=== PATIENT | male | born 1995 | race Two or more races ===

== ENCOUNTER 2016-07-22 14:31 | Emergency (ER) | payer OTHER ==
[~2016-07-22] VITALS: Ht 170.2 cm; Wt 95.3 kg
[2016-07-22] MEDS ORDERED: KETOROLAC 30 MG/ML VIAL (J1885) IV ONE (15:00)
[2016-07-22] MEDS ORDERED: ONDANSETRON 4MG/2ML VIAL (J2405) IV ONE (15:00)
[2016-07-22] MEDS ORDERED: NS 1,000 ML IV ONE (15:00)
[2016-07-22 15:32] LABS: BASO # 0.1 K/mm3 (0.0-0.2); BASO % 0.5 % (0.0-1.0); EOS # 0.3 K/mm3 (0.0-0.50); EOS % 2.1 % (0.0-3.0); LARGE UNSTAINED CELL # 0.3 K/mm3 (0.0-0.4); LYMPH # 5.6 K/mm3 (1.5-6.5); LYMPH % 37.9 % (24.0-44.0); MEAN CORPUSCULAR HEMOGLOBIN 28.8 pg (27.0-33.0); MEAN CORPUSCULAR HGB CONC 33.4 g/dl (32.0-36.5); MEAN CORPUSCULAR VOLUME 86.2 fl (80.0-96.0); MONO # 0.6 K/mm3 (0.0-0.8); NEUTROPHILS # 7.5 K/mm3 (1.8-7.7); NEUTROPHILS % 53.4 % (36.0-66.0); PLATELET COUNT, AUTOMATED 189 k/mm3 (150-450); RED CELL DISTRIBUTION WIDTH 13.1 % (11.5-14.5)
[2016-07-22 15:51] LABS: ALBUMIN 3.8 GM/DL (3.2-5.2); ALBUMIN/GLOBULIN RATIO 0.95 (1.00-1.93); ALKALINE PHOSPHATASE 107 U/L (45-117); ALT/SGPT 32 U/L (12-78); ANION GAP 8 MEQ/L (8-16); AST/SGOT 24 U/L (15-37); BILIRUBIN,DIRECT 0.1 MG/DL (0.0-0.2); BILIRUBIN,TOTAL 0.4 MG/DL (0.2-1.0); BLOOD UREA NITROGEN 14 MG/DL (7-18); CALCIUM LEVEL 8.9 MG/DL (8.5-10.1); CARBON DIOXIDE LEVEL 27 MEQ/L (21-32); CHLORIDE LEVEL 106 MEQ/L (98-107); CREATININE FOR GFR 1.41 MG/DL (0.70-1.30); GLOMERULAR FILTRATION RATE > 60.0 (>60); GLUCOSE, FASTING 135 MG/DL (70-105); POTASSIUM SERUM 3.4 MEQ/L (3.5-5.1); SODIUM LEVEL 141 MEQ/L (136-145); TOTAL PROTEIN 7.8 GM/DL (6.4-8.2)
[2016-07-22] MEDS ORDERED: HYDROmorphone HCL 1 MG/ML SYRINGE (J1170) IV ONE (16:30)
--- NOTE | 2016-07-22 16:35 | REP ---
Clinical: Renal colic. Findings: Mild to moderate acute left-sided obstructive uropathy with edematous enlargement of the kidney, mild perinephric stranding and hydroureteronephrosis secondary to a 7 mm calculus in the mid ureter (images 75 - 77). Multiple nonobstructing left intrarenal calculi identified up to 5 mm. The right kidney/ureter and bladder appear normal. Liver, spleen, pancreas, gallbladder, and bilateral adrenal glands are normal. The enteric system is without obstruction or acute inflammatory process. Normal terminal ileum and appendix are identified in the right lower quadrant. Pelvis demonstrates normal bladder and age appropriate prostate/seminal vesicles. No free air. No free fluid. No adenopathy. Abdominal aorta without aneurysm. Surrounding musculoskeletal structures grossly normal. Impression: Mild to moderate acute left-sided obstructive uropathy with a 7 mm calculus in the mid ureter. Multiple nonobstructing left renal calculi up to 5 mm. Signed by Eric Nieves MD 07/22/2016 04:27 P
[2016-07-22] MEDS ORDERED: KETO10TAB PO (16:42)
[2016-07-22] MEDS ORDERED: ZOFR4TAB3 PO (16:42)
[2016-07-22] MEDS ORDERED: HYDR-3713 PO (16:42)
[2016-07-22] MEDS ORDERED: FLOM5CAP PO (16:42)
[2016-07-22 17:13] VITALS: BP 145/74
== END 2016-07-22 17:32 | disposition home or self-care (01) ==
LOC: M ED 15:33
DX: N20.1 Calculus of ureter (principal); Z87.442 Personal history of urinary calculi
CPT/HCPCS: 74176; 80048; 80076; 83690; 85025; 96374; 96375; 99283; J1885; J2405

== ENCOUNTER 2016-07-25 16:26 | Emergency (ER) | payer OTHER ==
[~2016-07-25] VITALS: Ht 177.8 cm; Wt 95.3 kg
[2016-07-25 16:26] VITALS: BP 155/76
[~2016-07-25 16:26] MED LIST: FLOM5CAP PO; HYDR-3713 PO; KETO10TAB PO; ZOFR4TAB3 PO
[2016-07-25 17:31] LABS: BASO % 0.3 % (0.0-1.0); EOS # 0.3 K/mm3 (0.0-0.50); EOS % 2.6 % (0.0-3.0); LARGE UNSTAINED CELL # 0.2 K/mm3 (0.0-0.4); LYMPH # 2.5 K/mm3 (1.5-6.5); LYMPH % 22.4 % (24.0-44.0); MEAN CORPUSCULAR HEMOGLOBIN 29.4 pg (27.0-33.0); MEAN CORPUSCULAR HGB CONC 33.7 g/dl (32.0-36.5); MEAN CORPUSCULAR VOLUME 87.3 fl (80.0-96.0); MONO # 0.7 K/mm3 (0.0-0.8); MONO % 6.5 % (0.0-5.0); NEUTROPHILS # 6.9 K/mm3 (1.8-7.7); NEUTROPHILS % 66.2 % (36.0-66.0); PLATELET COUNT, AUTOMATED 133 k/mm3 (150-450); RED CELL DISTRIBUTION WIDTH 12.9 % (11.5-14.5); WHITE BLOOD COUNT 10.4 K/mm3 (4.0-10.0)
[2016-07-25 17:42] LABS: ANION GAP 4 MEQ/L (8-16); BLOOD UREA NITROGEN 12 MG/DL (7-18); CALCIUM LEVEL 8.5 MG/DL (8.5-10.1); CARBON DIOXIDE LEVEL 32 MEQ/L (21-32); CHLORIDE LEVEL 102 MEQ/L (98-107); CREATININE FOR GFR 1.52 MG/DL (0.70-1.30); GLOMERULAR FILTRATION RATE > 60.0 (>60); GLUCOSE, FASTING 96 MG/DL (70-105); POTASSIUM SERUM 3.8 MEQ/L (3.5-5.1); SODIUM LEVEL 138 MEQ/L (136-145)
[2016-07-25] MEDS ORDERED: ACET30TAB PO (18:04)
== END 2016-07-25 18:20 | disposition home or self-care (01) ==
LOC: M ED 17:04
DX: N23 Unspecified renal colic (principal); Z79.899 Other long term (current) drug therapy

== ENCOUNTER 2016-08-01 03:33 | Emergency (ER) | payer OTHER ==
[~2016-08-01] VITALS: Ht 170.2 cm; Wt 95.3 kg
[~2016-08-01 03:33] MED LIST changes: +ACET30TAB PO
[2016-08-01 05:10] VITALS: BP 130/93
[2016-08-11 00:06] LABS: Size 7x5x4 mm (.)
[2016-08-13] MEDS ORDERED: FLOM5CAP PO (06:36)
== END 2016-08-01 05:30 | disposition home or self-care (01) ==
LOC: M ED 05:22
DX: N20.1 Calculus of ureter (principal); Z79.899 Other long term (current) drug therapy

== ENCOUNTER → 2016-08-13 | Day surgery (SDC) | payer OTHER ==
[~2016-08-13] VITALS: Ht 177.8 cm; Wt 95.3 kg
[~2016-08-13] MED LIST changes: +CONRAY-60 60% 50ML VIAL (Q9961) As Ordered ONE; +KETOROLAC 30 MG/ML VIAL (J1885) IV PRN; +LIDOCAINE 1% SDV 5 ML VIAL SC ONE; +LR 1,000 ML IV SCH; +MEPERIDINE INJ 25 MG/ML VIAL (J2175) IV PRN; +METOCLOPRAMIDE INJ 10MG/2ML VIAL (J2765) IV PRN; +MIDAZOLAM INJ 2 MG/2 ML VIAL (J2250) As Ordered ONE; +ONDANSETRON 4MG/2ML VIAL (J2405) As Ordered ONE; +ONDANSETRON 4MG/2ML VIAL (J2405) IV PRN; +PERCOCET 5MG/325MG TAB PO PRN; +PROPOFOL 200 MG/20 ML VIAL As Ordered ONE; +ROCURONIUM BROMIDE 50 MG/5 ML VIAL As Ordered ONE; +SUCCINYLCHOLINE 100 MG/5 ML SYRINGE (J0330) As Ordered ONE; +dexameTHASONE 4 MG/ML 1ML VIAL (J1100) As Ordered ONE; +fentaNYL 100 MCG/2 ML INJECTION (J3010) As Ordered ONE; +fentaNYL 100 MCG/2 ML INJECTION (J3010) IV PRN; +oxyBUTYnin 5 MG TAB PO PRN
--- NOTE | 2016-08-13 08:40 | REP ---
RETROGRADE PYELOGRAM: Three views. HISTORY: Ureteral stone. 6 seconds of fluoroscopy time is reported. FINDINGS: A sequence of three last image hold fluoro spot radiographs of the left abdomen document left ureteral cannulation, guidewire manipulation, contrast injection, and double pigtail ureteral stent placement. Signed by Micheal Mcgrath MD 08/13/2016 09:36 A
--- NOTE | 2016-08-13 09:12 | RO ---
DATE OF PROCEDURE: 08/13/2016 PREPROCEDURE DIAGNOSIS: Left kidney and ureteral stones. POSTPROCEDURE DIAGNOSES: Left kidney stone, left renal pelvic mass. PROCEDURE: Cystoscopy, left ureteroscopy with basket extraction of stones and biopsy of renal pelvis mass, left retrograde pyelogram with intraoperative interpretation of images, right ureteral stent placement. SURGEON: Dr. Thomas Chavis HAIR SPRING WINDER: None. ANESTHESIA: General. OPERATIVE INDICATIONS: This is a 21-year-old male who was recently found to have an obstructing 6-7 mm proximal left ureteral stone as well as a few stones inside the left kidney. He was brought to the operating room today for treatment of those stones. DESCRIPTION OF PROCEDURE: The patient was brought to the operating room where general anesthesia was induced. Prophylactic antibiotics were infused. He was placed in dorsal lithotomy position, prepped and draped in the usual sterile fashion. A rigid cystoscope was then inserted into the urethral meatus and advanced into the bladder. Once within the bladder, a wire was advanced up the left collecting system. A ureteral access sheath was then advanced over the wire into the left collecting system and the wire was secured to the drape to serve as a safety wire. I then went up the access sheath into the proximal left ureter. Of note, there did appear to be some edema in the proximal ureter particularly where the stone was previously but no stone was seen. I advanced the scope all the way into the kidney and the kidney was thoroughly examined. Only one small stone was seen, that was about 3 mm in size. The stone was grasped with a basket and removed. Also of note, there were probably about three or four areas in the renal pelvis that had whitish-brown fibrotic appearing tissue in it. It was possible that this was scar tissue from prior stone surgery. It did appear abnormal. I also suspect that this tissue might be what was showing up as possible stones on the preoperative CT scan. I took several biopsies of this tissue to be sent for pathologic analysis. At this point, I examined the kidney thoroughly once again and no additional stones were seen. A retrograde pyelogram was then performed and was notable for moderate to severe left hydronephrosis. I then withdrew the ureteroscope along with the ureteral access sheath and examined the remainder of the ureter and no stones were seen within the entire ureter. At this point, the wire was utilized to advance a 7-Dutch by #22-32 cm JJ ureteral stent up into the left collecting system. The wire was then removed and there were adequate curls to the stent in the left renal pelvis and in the bladder. The bladder was then emptied of all fluid and this marked the conclusion of the procedure. The patient was then taken out of dorsal lithotomy position, awakened from anesthesia and transported to the recovery room in stable condition. ESTIMATED BLOOD LOSS: 0 mL. COMPLICATIONS: None. SPECIMENS: Left kidney stone, biopsy of left renal pelvic mass. COMPLICATIONS: None. PLAN: The patient will followup in the clinic in a few weeks for stent removal. We will also discuss pathology results at that time. YONY
[2016-08-13 09:45] VITALS: BP 135/85
== END | disposition home or self-care (01) ==
LOC: M SDC 05:37
PROVIDERS: ATTEND Urology
DX: N20.0 Calculus of kidney (principal); D41.12 Neoplasm of uncertain behavior of left renal pelvis; F17.210 Nicotine dependence, cigarettes, uncomplicated; R06.83 Snoring
CPT/HCPCS: 52332; 52352; 74420; 82360; 88300; 88305; C1726; C1894; C2617; J0330; J0690; J1100; J2250; J2405; J3010; Q9961

== ENCOUNTER 2016-08-28 21:02 | Emergency (ER) | payer OTHER ==
[~2016-08-28] VITALS: Ht 177.8 cm; Wt 96.6 kg
[~2016-08-28 21:02] MED LIST changes: -CONRAY-60 60% 50ML VIAL (Q9961) As Ordered ONE; -KETOROLAC 30 MG/ML VIAL (J1885) IV PRN; -LIDOCAINE 1% SDV 5 ML VIAL SC ONE; -LR 1,000 ML IV SCH; -MEPERIDINE INJ 25 MG/ML VIAL (J2175) IV PRN; -METOCLOPRAMIDE INJ 10MG/2ML VIAL (J2765) IV PRN; -MIDAZOLAM INJ 2 MG/2 ML VIAL (J2250) As Ordered ONE; -ONDANSETRON 4MG/2ML VIAL (J2405) As Ordered ONE; -ONDANSETRON 4MG/2ML VIAL (J2405) IV PRN; -PERCOCET 5MG/325MG TAB PO PRN; -PROPOFOL 200 MG/20 ML VIAL As Ordered ONE; -ROCURONIUM BROMIDE 50 MG/5 ML VIAL As Ordered ONE; -SUCCINYLCHOLINE 100 MG/5 ML SYRINGE (J0330) As Ordered ONE; -dexameTHASONE 4 MG/ML 1ML VIAL (J1100) As Ordered ONE; -fentaNYL 100 MCG/2 ML INJECTION (J3010) As Ordered ONE; -fentaNYL 100 MCG/2 ML INJECTION (J3010) IV PRN; -oxyBUTYnin 5 MG TAB PO PRN
[2016-08-28] MEDS ORDERED: IBUP-1114 PO (21:13)
[2016-08-28] MEDS ORDERED: OXYB5TAB10 PO (21:14)
[2016-08-29 00:34] LABS: BASO % 0.5 % (0.0-1.0); EOS # 0.3 K/mm3 (0.0-0.50); EOS % 2.4 % (0.0-3.0); LARGE UNSTAINED CELL # 0.2 K/mm3 (0.0-0.4); LARGE UNSTAINED CELL % 1.6 % (0.0-4.0); LYMPH # 3.7 K/mm3 (1.5-6.5); LYMPH % 31.5 % (24.0-44.0); MEAN CORPUSCULAR HEMOGLOBIN 28.7 pg (27.0-33.0); MEAN CORPUSCULAR VOLUME 87.2 fl (80.0-96.0); MONO # 0.6 K/mm3 (0.0-0.8); MONO % 5.2 % (0.0-5.0); NEUTROPHILS # 6.6 K/mm3 (1.8-7.7); NEUTROPHILS % 58.8 % (36.0-66.0); PLATELET COUNT, AUTOMATED 175 k/mm3 (150-450); RED CELL DISTRIBUTION WIDTH 13.6 % (11.5-14.5); WHITE BLOOD COUNT 11.2 K/mm3 (4.0-10.0)
[2016-08-29 00:39] LABS: ANION GAP 5 MEQ/L (8-16); BLOOD UREA NITROGEN 18 MG/DL (7-18); CARBON DIOXIDE LEVEL 29 MEQ/L (21-32); CHLORIDE LEVEL 111 MEQ/L (98-107); CREATININE FOR GFR 1.32 MG/DL (0.70-1.30); GLOMERULAR FILTRATION RATE > 60.0 (>60); GLUCOSE, FASTING 94 MG/DL (70-105); POTASSIUM SERUM 3.9 MEQ/L (3.5-5.1); SODIUM LEVEL 145 MEQ/L (136-145)
--- NOTE | 2016-08-29 01:00 | REPUSA ---
CLINICAL HISTORY: Abdominal pain. TECHNIQUE: Multiple axial, sagittal and coronal CT images were obtained through the abdomen and pelvi s without administration of oral or IV contrast material. COMMENTS: Comparison is made to the prior exam performed on 07/15/2015. 3.2 mm residual stone is noted in the left ureter at the L3 level. Mild decrease in left hydrouretero nephrosis which remains however moderate. Left Double-J catheteri s in good position. No change in bilateral nephrocalcinosis and nephrolithiasis. The liver is of uniform attenuation without mass or defect. There is no intra or extrahepatic biliary ductal dilatation. The spleen is normal. The gallbladder is within normal limits. The pancreas is of normal contour and attenuation characteristics. There is no evidence of adrenal mass. There is no evidence for appendicitis. There is no bowel wall thickening. No evidence for small or la rge bowel obstruction. There is no evidence of abdominal ascites or lymphadenopathy. There is no evidence of intrinsic or extrinsic bladder mass. There is no pelvic ascites or lymphadeno johnny. Images of the lung bases show no evidence of pleural or parenchymal mass. There are no pleural effusi ons. The bony structures are free of lytic or blastic lesions. Multilevel degenerative changes are seen in volving the thoracolumbar spine. IMPRESSION: 3.2 mm residual stone is noted in the left ureter at L3. Mild decrease in left hydroureteronephrosis which remains however moderate. Left double-J catheter was inserted in good position. Moderate large bowel fecal stasis. Thank you for your kind referral of this patient.
[2016-08-29 01:51] LABS: CALCIUM OXALATE CRYSTALS SMALL
[2016-08-29] MEDS ORDERED: PYRI1TAB5 PO (02:49)
[2016-08-29] MEDS ORDERED: PHENAZOPYRIDINE 100 MG TAB PO ONE (03:00)
[2016-08-29 03:04] VITALS: BP 123/69
== END 2016-08-29 03:54 | disposition home or self-care (01) ==
LOC: M ED 23:34
DX: N20.1 Calculus of ureter (principal); N13.30 Unspecified hydronephrosis; K56.41 Fecal impaction; Z97.8 Presence of other specified devices; Z79.899 Other long term (current) drug therapy

== ENCOUNTER 2016-09-17 21:10 | Emergency (ER) | payer OTHER ==
[~2016-09-17] VITALS: Ht 170.2 cm; Wt 66.6 kg
[~2016-09-17 21:10] MED LIST changes: +IBUP-1114 PO; +OXYB5TAB10 PO; +PYRI1TAB5 PO
[2016-09-17] MEDS ORDERED: MORPHINE 4 MG/ML 1ML SYRINGE IV ONE (22:45)
[2016-09-17] MEDS ORDERED: ONDANSETRON 4MG/2ML VIAL (J2405) IV ONE (22:45)
--- NOTE | 2016-09-17 23:30 | REPUSA ---
CT of the abdomen and pelvis without contrast Clinical statement: Pain. Technique: Multiple axial CT images were obtained from the base of the lungs to the floor of the pelv is utilizing 5 mm axial slices without administration of contrast. Coronal and sagittal reconstructio ns were also obtained. Comparison: 08/29/2016. Findings: Chest: The visualized lung bases are clear. Abdomen: The kidneys are normal in size bilaterally. There is extensive bilateral nephrolithiasis. Th e moderately severe left-sided hydronephrosis and hydroureter remains. Inflammation around the left k idney has increased. The kidney stone in the distal left ureter is not located at the left ureteroves ical junction. The liver, spleen, pancreas, gallbladder and adrenal glands are unremarkable. The aort a demonstrates normal caliber and contour. There is no abdominal lymphadenopathy or ascites. Pelvis: The bowel is unremarkable, with no obstructive or inflammatory changes. The urinary bladder i s within normal limits. There is no pelvic lymphadenopathy or ascites. The other pelvic structures ap pear unremarkable. Bones: There are no suspicious osseous abnormalities seen. Impression: 1. Slow progression of the 4 mm obstructing stone in the distal left ureter, now located at the left ureterovesical junction. 2. Moderately severe left-sided hydronephrosis and hydroureter remains. Perinephric inflammation arou nd the left kidney has increased since the prior study however. 3. Extensive bilateral nephrolithiasis. 4. The other CT findings are stable.
[2016-09-17 23:37] LABS: BASO # 0.1 K/mm3 (0.0-0.2); BASO % 0.5 % (0.0-1.0); EOS # 0.3 K/mm3 (0.0-0.50); EOS % 1.9 % (0.0-3.0); LARGE UNSTAINED CELL # 0.2 K/mm3 (0.0-0.4); LARGE UNSTAINED CELL % 1.2 % (0.0-4.0); LYMPH # 3.2 K/mm3 (1.5-6.5); LYMPH % 20.4 % (24.0-44.0); MEAN CORPUSCULAR HEMOGLOBIN 28.2 pg (27.0-33.0); MEAN CORPUSCULAR HGB CONC 32.2 g/dl (32.0-36.5); MEAN CORPUSCULAR VOLUME 87.5 fl (80.0-96.0); MONO # 0.8 K/mm3 (0.0-0.8); MONO % 5.1 % (0.0-5.0); NEUTROPHILS # 10.4 K/mm3 (1.8-7.7); PLATELET COUNT, AUTOMATED 171 k/mm3 (150-450); RED CELL DISTRIBUTION WIDTH 13.6 % (11.5-14.5); WHITE BLOOD COUNT 14.7 K/mm3 (4.0-10.0)
[2016-09-17 23:58] LABS: ANION GAP 4 MEQ/L (8-16); BLOOD UREA NITROGEN 14 MG/DL (7-18); CARBON DIOXIDE LEVEL 29 MEQ/L (21-32); CHLORIDE LEVEL 111 MEQ/L (98-107); CREATININE FOR GFR 1.51 MG/DL (0.70-1.30); GLOMERULAR FILTRATION RATE > 60.0 (>60); GLUCOSE, FASTING 116 MG/DL (70-105); POTASSIUM SERUM 3.4 MEQ/L (3.5-5.1); SODIUM LEVEL 144 MEQ/L (136-145)
[2016-09-18] MEDS ORDERED: FLOM5CAP PO (00:19)
[2016-09-18] MEDS ORDERED: ZOFR4TAB3 PO (00:19)
[2016-09-18] MEDS ORDERED: NORCOTAB PO (00:19)
[2016-09-18] MEDS ORDERED: NORCO 5/325MG TABLET (BULK FOR ED) PO ONE (00:30)
[2016-09-18] MEDS ORDERED: TAMSULOSIN 0.4 MG CAP PO ONE (00:30)
[2016-09-18 00:33] VITALS: BP 135/85
== END 2016-09-18 00:34 | disposition home or self-care (01) ==
LOC: M ED 21:10
DX: N20.1 Calculus of ureter (principal); N13.30 Unspecified hydronephrosis; R11.0 Nausea; Z87.442 Personal history of urinary calculi; F17.200 Nicotine dependence, unspecified, uncomplicated
CPT/HCPCS: 74176; 80048; 81001; 85025; 86140; 87086; 96374; 96375; 99284; J2405

== ENCOUNTER 2016-10-09 19:08 | Emergency (ER) | payer OTHER ==
[~2016-10-09] VITALS: Ht 170.2 cm; Wt 97.7 kg
[~2016-10-09 19:08] MED LIST changes: +NORCOTAB PO
[2016-10-09 19:59] LABS: BASO # 0.1 K/mm3 (0.0-0.2); BASO % 0.7 % (0.0-1.0); EOS # 0.3 K/mm3 (0.0-0.50); LARGE UNSTAINED CELL # 0.3 K/mm3 (0.0-0.4); LARGE UNSTAINED CELL % 2.6 % (0.0-4.0); LYMPH # 5.5 K/mm3 (1.5-6.5); LYMPH % 42.7 % (24.0-44.0); MEAN CORPUSCULAR HEMOGLOBIN 29.2 pg (27.0-33.0); MEAN CORPUSCULAR HGB CONC 33.4 g/dl (32.0-36.5); MEAN CORPUSCULAR VOLUME 87.5 fl (80.0-96.0); MONO # 0.6 K/mm3 (0.0-0.8); NEUTROPHILS % 46.9 % (36.0-66.0); PLATELET COUNT, AUTOMATED 193 k/mm3 (150-450); RED CELL DISTRIBUTION WIDTH 13.4 % (11.5-14.5); WHITE BLOOD COUNT 12.8 K/mm3 (4.0-10.0)
[2016-10-09] MEDS ORDERED: MORPHINE 4 MG/ML 1ML SYRINGE IV ONE (20:00)
[2016-10-09] MEDS ORDERED: NS 1,000 ML IV ONE (20:00)
[2016-10-09] MEDS ORDERED: ONDANSETRON 4MG/2ML VIAL (J2405) IV ONE (20:00)
[2016-10-09 20:20] LABS: ALBUMIN 4.2 GM/DL (3.2-5.2); ALBUMIN/GLOBULIN RATIO 1.24 (1.00-1.93); ALKALINE PHOSPHATASE 94 U/L (45-117); ALT/SGPT 42 U/L (12-78); ANION GAP 11 MEQ/L (8-16); AST/SGOT 45 U/L (15-37); BILIRUBIN,DIRECT < 0.1 MG/DL (0.0-0.2); BILIRUBIN,TOTAL 0.2 MG/DL (0.2-1.0); BLOOD UREA NITROGEN 12 MG/DL (7-18); CALCIUM LEVEL 9.7 MG/DL (8.5-10.1); CARBON DIOXIDE LEVEL 26 MEQ/L (21-32); CHLORIDE LEVEL 108 MEQ/L (98-107); CREATININE FOR GFR 1.28 MG/DL (0.70-1.30); GLOMERULAR FILTRATION RATE > 60.0 (>60); GLUCOSE, FASTING 121 MG/DL (70-105); POTASSIUM SERUM 3.3 MEQ/L (3.5-5.1); SODIUM LEVEL 145 MEQ/L (136-145); TOTAL PROTEIN 7.6 GM/DL (6.4-8.2)
--- NOTE | 2016-10-09 20:30 | REPUSA ---
CT of the abdomen and pelvis without contrast Clinical statement: Pain. Left renal stone. Technique: Multiple axial CT images were obtained from the base of the lungs to the floor of the pelv is utilizing 5 mm axial slices without administration of contrast. Coronal and sagittal reconstructio ns were also obtained. Comparison: 09/17/2016. Findings: Chest: The visualized lung bases are clear. Abdomen: The kidneys are normal in size bilaterally. The extensive bilateral nephrolithiasis remained . However, there are numerous new small stones in the left renal pelvis which would the prior study, with worsening left-sided hydronephrosis. There appears to be a new obstructing 4 mm stone in the mid -left ureter. The previously described obstructing stone in the distal left ureter appears to have re solved. Left perinephric inflammation has increased since the prior study. The liver, spleen, pancrea s, gallbladder and adrenal glands are unremarkable. The aorta demonstrates normal caliber and contour . There is no abdominal lymphadenopathy or ascites. Pelvis: The bowel is unremarkable, with no obstructive or inflammatory changes. The appendix is raghav l. The urinary bladder is within normal limits. There is no pelvic lymphadenopathy or ascites. The ot her pelvic structures appear unremarkable. Bones: There are no suspicious osseous abnormalities seen. Impression: 1. New worsening left-sided hydronephrosis and perinephric inflammation, caused by a new 4 mm obstruc ting stone in the mid-left ureter. 2. Numerous new stones are seen in the left renal pelvis. 3. The previously described stone in the distal left ureter is no longer visualized, and likely has p assed. 4. Otherwise, extensive bilateral nephrolithiasis is stable. 5. The other CT findings are unchanged.
[2016-10-09] MEDS ORDERED: KETOROLAC 30 MG/ML VIAL (J1885) IV ONE (20:45)
[2016-10-09] MEDS ORDERED: POTASSIUM CHLORIDE 10 MEQ SR TABLET PO ONE (20:45)
[2016-10-09] MEDS ORDERED: CIPR-249 PO (22:11)
[2016-10-09] MEDS ORDERED: ZOFR4TAB3 PO (22:12)
[2016-10-09] MEDS ORDERED: FLOM5CAP PO (22:13)
[2016-10-09] MEDS ORDERED: PERC5TAB12 PO (22:13)
[2016-10-09] MEDS ORDERED: OXYCODONE/APAP 5MG/325MG(BULK FOR ED) 1 TABLET PO ONE (22:15)
[2016-10-09] MEDS ORDERED: CIPROFLOXACIN 500 MG TAB PO ONE (22:15)
[2016-10-09 22:30] VITALS: BP 137/87
== END 2016-10-09 22:32 | disposition home or self-care (01) ==
LOC: M ED 19:08
DX: N13.2 Hydronephrosis with renal and ureteral calculous obstruction (principal); Z87.442 Personal history of urinary calculi; Z96.0 Presence of urogenital implants
CPT/HCPCS: 74176; 80048; 80076; 81001; 83690; 85025; 87040; 87086; 96361; 96374; 96375; 99283; J1885; J2405

== ENCOUNTER 2016-10-27 01:52 | Emergency (ER) | payer OTHER, SELFPAY ==
[~2016-10-27] VITALS: Ht 170.2 cm; Wt 95.5 kg
[~2016-10-27 01:52] MED LIST changes: +CIPR-249 PO; +PERC5TAB12 PO
[2016-10-27] MEDS ORDERED: NS 1,000 ML IV ONE (02:30)
[2016-10-27] MEDS ORDERED: MORPHINE 4 MG/ML 1ML SYRINGE IV PRN (02:30)
[2016-10-27] MEDS ORDERED: KETOROLAC 30 MG/ML VIAL (J1885) IV ONE (02:30)
[2016-10-27] MEDS ORDERED: ONDANSETRON 4MG/2ML VIAL (J2405) IV ONE (02:30)
[2016-10-27 02:32] LABS: BASO % 0.3 % (0.0-1.0); EOS # 0.1 K/mm3 (0.0-0.50); EOS % 0.8 % (0.0-3.0); LARGE UNSTAINED CELL # 0.3 K/mm3 (0.0-0.4); LARGE UNSTAINED CELL % 1.9 % (0.0-4.0); LYMPH # 3.4 K/mm3 (1.5-6.5); LYMPH % 24.5 % (24.0-44.0); MEAN CORPUSCULAR HEMOGLOBIN 29.6 pg (27.0-33.0); MEAN CORPUSCULAR HGB CONC 34.3 g/dl (32.0-36.5); MEAN CORPUSCULAR VOLUME 86.2 fl (80.0-96.0); MONO # 0.8 K/mm3 (0.0-0.8); MONO % 5.5 % (0.0-5.0); NEUTROPHILS # 9.4 K/mm3 (1.8-7.7); PLATELET COUNT, AUTOMATED 198 k/mm3 (150-450); RED CELL DISTRIBUTION WIDTH 13.3 % (11.5-14.5)
[2016-10-27 02:39] LABS: ALBUMIN 4.1 GM/DL (3.2-5.2); ALBUMIN/GLOBULIN RATIO 1.08 (1.00-1.93); ALKALINE PHOSPHATASE 84 U/L (45-117); ALT/SGPT 52 U/L (12-78); ANION GAP 13 MEQ/L (8-16); AST/SGOT 65 U/L (15-37); BILIRUBIN,DIRECT 0.1 MG/DL (0.0-0.2); BILIRUBIN,TOTAL 0.5 MG/DL (0.2-1.0); BLOOD UREA NITROGEN 11 MG/DL (7-18); CALCIUM LEVEL 9.4 MG/DL (8.5-10.1); CARBON DIOXIDE LEVEL 22 MEQ/L (21-32); CHLORIDE LEVEL 109 MEQ/L (98-107); CREATININE FOR GFR 1.52 MG/DL (0.70-1.30); GLOMERULAR FILTRATION RATE > 60.0 (>60); GLUCOSE, FASTING 129 MG/DL (70-105); POTASSIUM SERUM 3.3 MEQ/L (3.5-5.1); SODIUM LEVEL 144 MEQ/L (136-145); TOTAL PROTEIN 7.9 GM/DL (6.4-8.2)
--- NOTE | 2016-10-27 03:40 | REPUSA ---
CLINICAL HISTORY: Left flank pain. TECHNIQUE: Multiple axial, sagittal and coronal CT images were obtained through the abdomen and pelvi s without administration of oral or IV contrast material. COMMENTS: Comparison to the prior exam performed on 10/09/2016. Unchanged bilateral nephrolithiasis. Mild increase in left hydronephrosis. The previously noted stone in the proximal left ureter is not seen on the current exam. Another large r stone is identified in the proximal third of the left ureter at the same photography measuring 7.1x 6.1 mm. Increased nephrographic fat stranding and minimal free fluid. The liver is of uniform attenuation without mass or defect. There is no intra or extrahepatic biliary ductal dilatation. The spleen is normal. The gallbladder is within normal limits. The pancreas is of normal contour and attenuation characteristics. There is no evidence of adrenal mass. There is no evidence for appendicitis. There is no bowel wall thickening. No evidence for small or la rge bowel obstruction. There is no evidence of abdominal ascites or lymphadenopathy. There is no evidence of intrinsic or extrinsic bladder mass. There is no pelvic ascites or lymphadeno johnny. Images of the lung bases show no evidence of pleural or parenchymal mass. There are no pleural effusi ons. The bony structures are free of lytic or blastic lesions. IMPRESSION: Unchanged bilateral nephrolithiasis. Mild increase in left hydronephrosis. The previously noted stone in the proximal left ureter is not seen on the current exam. Instead a larger stone is noted in the proximal third of the left ureter at the same photography. Thank you for your kind referral of this patient.
[2016-10-27] MEDS ORDERED: METOCLOPRAMIDE INJ 10MG/2ML VIAL (J2765) IV ONE (04:15)
[2016-10-27] MEDS ORDERED: FLOM5CAP PO (05:21)
[2016-10-27] MEDS ORDERED: PERC5TAB12 PO (05:21)
[2016-10-27] MEDS ORDERED: ZOFR4TAB3 PO (05:21)
[2016-10-27] MEDS ORDERED: CIPR-249 PO (05:21)
[2016-10-27] MEDS ORDERED: CIPROFLOXACIN 500 MG TAB PO ONE (05:30)
[2016-10-27] MEDS ORDERED: TAMSULOSIN 0.4 MG CAP PO ONE (05:30)
[2016-10-27] MEDS ORDERED: OXYCODONE/APAP 5MG/325MG(BULK FOR ED) 1 TABLET PO ONE (05:30)
[2016-10-27 05:39] VITALS: BP 168/82
== END 2016-10-27 05:40 | disposition home or self-care (01) ==
LOC: EDBD 01:52 → M ED 01:52
DX: N20.1 Calculus of ureter (principal); Z87.442 Personal history of urinary calculi; F17.210 Nicotine dependence, cigarettes, uncomplicated
CPT/HCPCS: 74176; 80048; 80076; 81001; 83690; 85025; 87086; 96361; 96374; 96375; 99284; J1885; J2405; J2765

== ENCOUNTER 2017-02-08 09:36 | Day surgery (SDC) | payer SELFPAY ==
[~2017-02-08] VITALS: Ht 172.7 cm; Wt 95.5 kg
[2017-02-08] MEDS ORDERED: KETOROLAC 60 MG/2 ML VIAL (J1885) IM ONE (10:15)
[2017-02-08] MEDS ORDERED: ONDANSETRON 4MG/2ML VIAL (J2405) IV ONE ×2 (10:15→12:00)
[2017-02-08] MEDS ORDERED: KETOROLAC 30 MG/ML VIAL (J1885) As Ordered ONE (10:27)
[2017-02-08] MEDS ORDERED: KETOROLAC 30 MG/ML VIAL (J1885) IV ONE (10:30)
--- NOTE | 2017-02-08 11:17 | REP ---
CT ABDOMEN PELVIS WITHOUT CONTRAST: 02/08/2017 COMPARISON: 10/27/2016, 10/09/2016. CLINICAL HISTORY: Left flank pain. History of stones. Renal stone protocol was utilized. CT ABDOMEN: Lung bases are clear. Heart is not enlarged. There is no pericardial thickening or effusion. The liver, spleen, gallbladder, pancreas and adrenal glands are normal. Right kidney shows a punctate calcification in the pyramid about 2 mm in the interpolar region. The left kidney shows a moderately severe hydronephrosis with multiple calculi in the interpolar upper pole junction and lower pole. There are three stones in an extrarenal pelvis. The largest of which has a 14 mm in transverse diameter while another one has a vertical diameter of 20 mm. These are unchanged. In the extrarenal pelvis and hydroureter proximally, there is an 8.5 mm x 13 mm stone in the left UPJ and this is unchanged as is the degree of hydronephrosis. Below, this ureter has a normal course. There is perinephric and periureteral infiltration/edema similar to previous study. Remainder of the course of the left ureter is unremarkable and unchanged. Small bowel loops and colon are unchanged. CT bone windows, acute findings in the lumbar and lower thoracic spine and visualized ribs. CT PELVIS: The bony hips, pelvis, sacrum and acetabuli are unremarkable with the bladder nearly empty without stone, mass or wall thickening. Distal ureters without dilatation or stone. Calcification in the prostate. No ventral or inguinal hernia. Distal left colon, sigmoid and rectum unremarkable. Small bowel loops intact. IMPRESSION: 1. Multiple large left renal stones in the extrarenal pelvis, the three stones are unchanged in location from the previous study in October and measuring 20 mm vertical for the largest and the second largest about 14 mm . 2. Proximal left ureteral stone or UPJ stone also noted, 13 x 8 mm. Both of these areas are grossly unchanged and the degree of moderately severe to severe hydronephrosis is unchanged with perinephric and periureteral infiltration. 3. A few scattered other calcifications in the left kidney and a punctate nonobstructing stone on the right. No other finding. Signed by Nilo Suarez MD 02/08/2017 08:28 P
[2017-02-08] MEDS ORDERED: MORPHINE 4 MG/ML 1ML SYRINGE IV ONE (12:00)
[2017-02-08 12:03] LABS: BASO % 0.2 % (0.0-1.0); IMMATURE GRANULOCYTE % 0.3 % (0-0); LYMPH # 0.9 10^3/uL (1.5-6.5); LYMPH % 6.2 % (24.0-44.0); MEAN CORPUSCULAR HEMOGLOBIN 28.6 pg (27.0-33.0); MEAN CORPUSCULAR HGB CONC 33.4 g/dl (32.0-36.5); MEAN CORPUSCULAR VOLUME 85.5 fl (80.0-96.0); MONO # 0.6 10^3/uL (0.0-0.8); MONO % 3.9 % (0.0-5.0); NEUTROPHILS # 12.9 10^3/uL (1.8-7.7); NEUTROPHILS % 89.4 % (36.0-66.0); PLATELET COUNT, AUTOMATED 199 10^3/uL (150-450); RED CELL DISTRIBUTION WIDTH 13.8 % (11.5-14.5); WHITE BLOOD COUNT 14.4 10^3/uL (4.0-10.0)
[2017-02-08 12:32] LABS: ALBUMIN 4.3 GM/DL (3.2-5.2); ALBUMIN/GLOBULIN RATIO 1.13 (1.00-1.93); BILIRUBIN,TOTAL 0.6 MG/DL (0.2-1.0); CALCIUM LEVEL 9.5 MG/DL (8.5-10.1); CREATININE FOR GFR 1.7 MG/DL (0.70-1.30); GLOMERULAR FILTRATION RATE 53.4 (>60); POTASSIUM SERUM 3.8 MEQ/L (3.5-5.1); TOTAL PROTEIN 8.1 GM/DL (6.4-8.2)
[2017-02-08] MEDS ORDERED: CONRAY-60 60% 50ML VIAL (Q9961) As Ordered ONE (16:08)
[2017-02-08] MEDS ORDERED: MIDAZOLAM INJ 2 MG/2 ML VIAL (J2250) As Ordered ONE (16:22)
[2017-02-08] MEDS ORDERED: LIDOCAINE 2% INJ 100 MG/5 ML SDV (FOR ANES.) As Ordered ONE (16:23)
[2017-02-08] MEDS ORDERED: fentaNYL 100 MCG/2 ML INJECTION (J3010) As Ordered ONE (16:23)
[2017-02-08] MEDS ORDERED: PROPOFOL 200 MG/20 ML VIAL As Ordered ONE (16:23)
[2017-02-08] MEDS ORDERED: ceFAZolin 2 GM/D5W 50 ML IV BAG (J0690 PER 500MG) As Ordered ONE (16:44)
--- NOTE | 2017-02-08 16:51 | SMCUROLCON ---
Urology Consultation General Date of Consultation 02/08/17 Reason For Consultation This patient is seen for Kidney Stones. History of Present Illness This is a 21 y/o M w/ a PMH significant for kidney stones, presenting to the hospital for acute onset left flank pain. A CT A/P was done in the OR that was notable for multiple large left kidney stones as well as a 1.3cm left ureteropelvic junction (UPJ) stone and moderate left hydronephrosis. He denies dysuria or fevers. His WBC is elevated to 14.4 and Cr is 1.7 from 1.5 two months ago. Past Medical History Medical History see [facility] Surgical Hstory kidney stone surgery Allergies Allergies: Coded Allergies: No Known Allergies (Unverified , 08/28/16) Review of Systems Constitutional: Denies: Fever, Chills, Sweats, Weakness, Malaise Skin: Denies: Rash, Lesions, Breakdown, Nail Changes Pulmonary: Denies: Dyspnea, Cough Cardiovascular: Denies Chest Pain, Denies Palpitations Musculoskeletal: Reports: Back Pain Neurological: Denies: Weakness, Numbness, Incoordination, Change in Speech Psych: Reports: Mood Normal Physical Examination General Exam: Alert, No Acute Distress Chest Exam: Clear to auscultation Heart Exam: Rate Normal, Regular Rhythm Abdomen Exam: Soft Skin Exam: Nl turgor and temperature Neuro Exam: Normal Speech Psych Exam: Mental status NL Vital Signs/I&O Vital Signs Date Time Temp Pulse Resp B/P (MAP) Pulse Ox O2 Delivery O2 Flow Rate FiO2 02/08/17 15:50 99.0 86 18 155/90 (111) 99 02/08/17 09:36 Room Air Laboratory Data 24H Labs Laboratory Tests 2 02/08/17 11:52: Immature Granulocyte % (Auto) 0.3H, White Blood Count 14.4H, Red Blood Count 5.11, Hemoglobin 14.6, Hematocrit 43.7, Mean Corpuscular Volume 85.5, Mean Corpuscular Hemoglobin 28.6, Mean Corpuscular Hemoglobin Concent 33.4, Red Cell Distribution Width 13.8, Platelet Count 199, Neutrophils (%) (Auto) 89.4H, Lymphocytes (%) (Auto) 6.2L, Monocytes (%) (Auto) 3.9, Eosinophils (%) (Auto) 0.0, Basophils (%) (Auto) 0.2, Neutrophils # (Auto) 12.9H, Lymphocytes # (Auto) 0.9L, Monocytes # (Auto) 0.6, Eosinophils # (Auto) 0.0, Basophils # (Auto) 0.0, Immature Granulocyte # (Auto) 0.0, Nucleated Red Blood Cells % (auto) 0.0, Urine Appearance CLOUDYH, Urine Color YELLOW, Urine pH 7.0, Urine Specific [place] 1.025, Urine Protein 1+H, Urine Glucose (UA) 1+H, Urine Ketones 1+H, Urine Urobilinogen 2.0H, Urine Bilirubin NEGATIVE, Urine Leukocyte Esterase NEGATIVE, Urine Blood NEGATIVE, Urine Nitrite NEGATIVE, Urine WBC (Auto) 2, Urine RBC (Auto) 1, Urine Hyaline Casts (Auto) 0, Urine Bacteria (Auto) NEGATIVE , Urine Squamous Epithelial Cells 0, Urine Amorphous Sediment MODERATEH, Urine Mucus (Auto) MODERATE, Urine Sperm (Auto) , Anion Gap 9, Glomerular Filtration Rate 53.4L, Blood Urea Nitrogen 15, Creatinine 1.70H, Sodium Level 143, Potassium Level 3.8, Chloride Level 107, Carbon Dioxide Level 27, Calcium Level 9.5, Aspartate Amino Transf (AST/SGOT) 24, Alanine Aminotransferase (ALT/SGPT) 38, Alkaline Phosphatase 86, Total Bilirubin 0.6, Total Protein 8.1, Albumin 4.3 , Albumin/Globulin Ratio 1.13 CBC/BMP Laboratory Tests 02/08/17 11:52 Red Blood Count 5.11, Mean Corpuscular Volume 85.5, Mean Corpuscular Hemoglobin 28.6, Mean Corpuscular Hemoglobin Concent 33.4, Red Cell Distribution Width 13.8 , Neutrophils (%) (Auto) 89.4 H, Lymphocytes (%) (Auto) 6.2 L, Monocytes (%) ( Auto) 3.9, Eosinophils (%) (Auto) 0.0, Basophils (%) (Auto) 0.2, Neutrophils # ( Auto) 12.9 H, Lymphocytes # (Auto) 0.9 L, Monocytes # (Auto) 0.6, Eosinophils # (Auto) 0.0, Basophils # (Auto) 0.0, Calcium Level 9.5, Aspartate Amino Transf ( AST/SGOT) 24, Alanine Aminotransferase (ALT/SGPT) 38, Alkaline Phosphatase 86, Total Bilirubin 0.6, Total Protein 8.1, Albumin 4.3 Microbiology Microbiology 02/08/17 Urine Culture, Received Pending Assessment This is a 21 y/o M w/ left sided kidney stones as well as a 1.3cm obstructing left UPJ stone. Plan - OR for cysto, left ureteral stent placement - NPO for OR OLGA BRADEN MD Feb 08, 2017 16:51
[2017-02-08] MEDS ORDERED: ONDANSETRON 4MG/2ML VIAL (J2405) As Ordered ONE (17:21)
[2017-02-08] MEDS ORDERED: dexameTHASONE 4 MG/ML 1ML VIAL (J1100) As Ordered ONE (17:21)
[2017-02-08] MEDS ORDERED: LR 1,000 ML IV SCH (18:00)
[2017-02-08] MEDS ORDERED: fentaNYL 100 MCG/2 ML INJECTION (J3010) IV PRN (18:00)
[2017-02-08] MEDS ORDERED: MEPERIDINE INJ 25 MG/ML VIAL (J2175) IV PRN (18:00)
[2017-02-08] MEDS ORDERED: ONDANSETRON 4MG/2ML VIAL (J2405) IV PRN ×2 (18:00)
[2017-02-08] MEDS ORDERED: PERCOCET 5MG/325MG TAB PO PRN ×3 (18:00)
[2017-02-08] MEDS ORDERED: ACETAMINOPHEN TAB 650MG DOSE (2X325MG) PO PRN (18:00)
[2017-02-08] MEDS ORDERED: METOCLOPRAMIDE INJ 10MG/2ML VIAL (J2765) IV PRN (18:00)
--- NOTE | 2017-02-08 18:15 | REP ---
RETROGRADE PYELOGRAM, THREE VIEWS: HISTORY: Stent placement. Three portable radiographs were obtained with a C-ARM. The patient is status-post left ureteral stent placement. Fluoroscopic time 8 seconds. IMPRESSION: The patient is status-post left ureteral stent placement. Signed by Bandar Benavidez MD 02/08/2017 06:27 P
[2017-02-08 18:51] VITALS: BP 140/87
--- NOTE | 2017-02-08 19:02 | RO ---
DATE OF PROCEDURE: 02/08/2017 PREPROCEDURE DIAGNOSIS: Nephrolithiasis. POSTPROCEDURE DIAGNOSIS: Nephrolithiasis. PROCEDURE: Cystoscopy, left ureteral stent placement, left retrograde pyelogram with intraoperative interpretation of images, urethral meatal dilation. SURGEON: Dr. Thomas Chavis IMMIGRATION PARALEGAL: None. ANESTHESIA: General. OPERATIVE INDICATIONS: This is a 21-year-old male with a history of kidney stones, presented to the emergency room today with severe left flank pain. The CT scan was notable for multiple left kidney stones with an obstructing 1.3 cm left ureteropelvic junction stone. It was recommended he be brought to the operating room today for left ureteral stent placement for management of his pain. DESCRIPTION OF PROCEDURE: The patient was brought to the operating room and general anesthesia was induced. Prophylactic antibiotics were infused. He was placed in the dorsal lithotomy position and prepped and draped in the usual sterile fashion. I attempted to insert a cystoscope into his urethral meatus, but it would not advance due to his urethral meatus being too narrow. I, therefore, dilated his urethral meatus to #26-Armenian using curved metal sounds. After this point, I was able to advance the scope into the urethra and into the bladder. I then advanced an open-ended ureteral catheter up into the left collecting system. A retrograde pyelogram was performed and was notable for moderate left hydronephrosis. At this point, a wire was advanced to the left collecting system and the open-ended ureteral catheter was removed. The wire was utilized to advance a #7-Armenian x 22-32 cm JJ ureteral stent up into the left collecting system. The wire was then removed, and there were adequate coils of the stent in the left renal pelvis and in the bladder. The bladder was then emptied of all fluid and this marked the conclusion of the procedure. The patient was then taken out of the dorsal lithotomy position, awakened from anesthesia and transported to the recovery room in stable condition. Estimated blood loss: 0 mL. Complications: None. Specimens: None. PLAN: The patient will be brought back to be seen in the clinic within a week or two to get him set up for definitive surgery on his stones. We will also followup on his urine culture to ensure that he does not have a urinary tract infection.
== END 2017-02-08 19:00 | disposition home or self-care (01) ==
LOC: M ED 09:36 → M SDC 15:55
PROVIDERS: ATTEND Urology
DX: N20.0 Calculus of kidney (principal); Z72.0 Tobacco use
CPT/HCPCS: 52332; 74176; 74420; 80053; 81001; 85025; 87086; 96374; 96375; 96376; 99283; C1758; C2617; J0690; J1100; J1885; J2250; J2405; J3010; Q9961

== ENCOUNTER → 2017-02-22 | Outpatient (CLI) | payer SELFPAY ==
[2017-02-22 13:33] LABS: MEAN CORPUSCULAR HEMOGLOBIN 28.3 pg (27.0-33.0); MEAN CORPUSCULAR VOLUME 85.9 fl (80.0-96.0); PLATELET COUNT, AUTOMATED 229 10^3/uL (150-450); RED CELL DISTRIBUTION WIDTH 13.7 % (11.5-14.5); WHITE BLOOD COUNT 9.4 10^3/uL (4.0-10.0)
[2017-02-22 13:47] LABS: ANION GAP 7 MEQ/L (8-16); BLOOD UREA NITROGEN 18 MG/DL (7-18); CALCIUM LEVEL 9.5 MG/DL (8.5-10.1); CARBON DIOXIDE LEVEL 30 MEQ/L (21-32); CHLORIDE LEVEL 107 MEQ/L (98-107); CREATININE FOR GFR 1.24 MG/DL (0.70-1.30); GLOMERULAR FILTRATION RATE > 60.0 (>60); GLUCOSE, FASTING 92 MG/DL (70-105); POTASSIUM SERUM 3.9 MEQ/L (3.5-5.1); SODIUM LEVEL 144 MEQ/L (136-145)
== END ==
LOC: M SMT 09:47
PROVIDERS: ATTEND Urology
DX: N20.0 Calculus of kidney (principal)

== ENCOUNTER → 2017-03-08 | Outpatient (REF) | payer SELFPAY | LOC: M SMT 16:55 | DX: N20.0 Calculus of kidney (principal); N39.0 Urinary tract infection, site not specified ==

== ENCOUNTER 2017-03-09 07:51 | Day surgery (SDC) | payer SELFPAY ==
[2017-03-09] MEDS ORDERED: PROPOFOL 200 MG/20 ML VIAL As Ordered (09:15)
[2017-03-09] MEDS ORDERED: MIDAZOLAM INJ 2 MG/2 ML VIAL (J2250) As Ordered (09:15)
[2017-03-09] MEDS ORDERED: fentaNYL 100 MCG/2 ML INJECTION (J3010) As Ordered ×2 (09:15→12:12)
[2017-03-09] MEDS ORDERED: LIDOCAINE 2% INJ 100 MG/5 ML SDV (FOR ANES.) As Ordered (09:15)
[2017-03-09] MEDS ORDERED: LR 1,000 ML IV ×2 (10:30→14:15)
[2017-03-09] MEDS ORDERED: ONDANSETRON 4MG/2ML VIAL (J2405) As Ordered (11:15)
[2017-03-09] MEDS ORDERED: dexameTHASONE 4 MG/ML 1ML VIAL (J1100) As Ordered (11:15)
[2017-03-09] MEDS: CONRAY-60 60% 50ML VIAL (Q9961) As Ordered (11:19)
[2017-03-09] MEDS ORDERED: HYDROmorphone HCL 2 MG/ML 1ML VIAL (J1170) As Ordered (13:31)
[2017-03-09] MEDS: PERCOCET 5MG/325MG TAB PO ×2 (14:05→14:35)
[2017-03-09] MEDS ORDERED: MORPHINE 10 MG/ML 1ML VIAL IV (14:15)
[2017-03-09] MEDS ORDERED: ONDANSETRON 4MG/2ML VIAL (J2405) IV (14:15)
[2017-03-09] MEDS ORDERED: PERCOCET 5MG/325MG TAB PO ×2 (14:15)
[2017-03-09] MEDS ORDERED: fentaNYL 100 MCG/2 ML INJECTION (J3010) IV (14:15)
== END 2017-03-09 15:40 | disposition home or self-care (01) ==
LOC: M SDC 07:51
DX: N20.0 Calculus of kidney (principal); N35.9 Urethral stricture, unspecified; Z72.0 Tobacco use
CPT/HCPCS: 52356

== ENCOUNTER → 2017-03-30 | Outpatient (CLI) | payer SELFPAY | LOC: M SMT 14:44 | DX: N20.0 Calculus of kidney (principal) | CPT/HCPCS: 74018 ==